=== PATIENT | female | born 1960 | race Two or more races ===

== ENCOUNTER 2024-02-25 18:59 | Emergency (ER) | payer MEDICAID, OTHER ==
[~2024-02-25] VITALS: Ht 157.5 cm; Wt 93.0 kg
[2024-02-25 20:20] VITALS: BP 106/62; PULSE 111; RESP 16; TEMP 98.8; O2SAT 97
--- NOTE | 2024-02-25 21:09 | DVH ---
CT LS SPINE WO CONTRAST Date: 02/25/2024 08:40 PM History: lumbar radiculopaty Comparison: None TECHNIQUE: Multiple axial CT images of the lumbosacral spine were obtained using bone algorithm. Axial and coron al reformatting was done. Bone and soft tissue windows were reviewed. Radiation Dose Information: CT Dose: CTDI volume is 35.24 mGy. Dose-length product is 1185.73 mGy*cm FINDINGS: 4 mm calculus right kidney with no hydronephrosis No CT evidence of definite acute fracture, spinal dislocation, or significant appearing acute subluxa tion is seen. The visualized paraspinal soft tissues are grossly unremarkable. T12-L1 There is no evidence of central spinal canal or neuroforaminal stenosis. L1-L2 There is no evidence of central spinal canal or neuroforaminal stenosis. L2-L3 There is no evidence of central spinal canal or neuroforaminal stenosis. L3-L4 There is no evidence of central spinal canal or neuroforaminal stenosis. Mild diffuse annular b ulging of the disc L4-L5 hypertrophic arthritic changes of the posterior facets and hypertrophy of the ligamentum flavum which are partially calcified. There is mild spinal stenosis. L5-S1 diffuse annular bulge of the disc involving the right worse than left neural foramen. There is mild spinal stenosis. IMPRESSION: 1. Diffuse annular bulge of the disc at L5-S1 with involvement of the both right worse than the left neural foramen. There is also with mild spinal stenosis. 2. Diffuse annular bulge of the disc involving neural foramen bilaterally with mild spinal stenosis. There is also hypertrophic arthritic changes of the posterior facets and partially calcified hypertro phy of the ligamentum flavum bilaterally. 3. Nonobstructing calculus right kidney. All CT scans at this medical facility are performed using dose modulation techniques as appropriate t o a performed exam including the following: Automated exposure control was utilized; adjustment of th e MA and/or KV according to patient size; and use of iterative reconstruction technique.
--- NOTE | 2024-02-25 21:24 | ED.PDOC ---
Back pain HPI HPI Comments This is a 63-year-old female presents to the ED acute on chronic low back pain. 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 He states since, has been having bilateral low back pain radiating down posterior legs to the heel. Does note chronic back pain and follows with pain management however she states the shooting down to her heel is new. States she was seen at [facility] after the accident had an x-ray done which showed no acute findings. Patient also states that she has history of urgency, frequency and incontinence due to an epidural she received which she states is chronic in nature. Does state since the fall the symptoms have progressed she states more urgency. Complaining of bilateral low back pain 10/10 on pain scale describes as sharp shooting pain down both posterior legs. Denies any weakness foot drop saddle anesthesia fever or chills. Notes no loss of control of her bladder or bowels Chief Complaint: Back Pain Time Seen by MD: 19:18 Reviewed Notes: Nurses Notes, Medications, Allergies Allergies: Coded Allergies: Erythromycin (Verified Allergy, Unknown, 02/25/24) Tetracycline (Verified Allergy, Unknown, 02/25/24) Information Source: Patient Mode of Arrival: Wheelchair Past Medical History PAST MEDICAL HISTORY: Denies Past Medical History (Other): Chronic low back pain Surgical History: Denies all surgeries VINYL INSTALLER History: No Pertinent VINYL INSTALLER History Family History Family History: Reviewed,noncontributory to illness Social History Smoker: Non-Smoker Alcohol: Denies ETOH Use Drugs: Denies Drug Use Constitutional: denies: chills, diaphoresis, fatigue, fever, malaise, sweats, weakness, others EENTM: denies: blurred vision, double vision, ear bleeding, ear discharge, ear drainage, ear pain, ear ringing, eye pain, eye redness, hearing loss, mouth pain, mouth swelling, nasal discharge, nose bleeding, nose congestion, nose pain, photophobia, tearing, throat pain, throat swelling, voice changes, others Respiratory: denies: cough, hemoptysis, orthopnea, SOB at rest, shortness of breath, SOB with excertion, stridor, wheezing, others Cardiovascular: denies: chest pain, dizzy spells, diaphoresis, Dyspnea on exertion, edema, irregular heart beat, left arm pain, lightheadedness, palpitations, PND, syncope, others Gastrointestinal: denies: abdomen distended, abdominal pain, blood streaked bowels, constipated, diarrhea, dysphagia, difficulty swallowing, hematemesis, melena, nausea, poor appetite, poor fluid intake, rectal bleeding, rectal pain, vomiting, others Genitourinary: denies: abnormal vagina bleeding, burning, dyspareunia, dysuria, flank pain, frequency, hematuria, incontinence, pain, , vagina discharge, urgency, others Neurological: denies: dizziness, fainting, headache, left sided numbness, left sided weakness, numbness, paresthesia, pre-existing deficit, right sided numbness, right sided weakness, seizure, speech problems, tingling, tremors, weakness, others Musculoskeletal: reports: back pain; denies: gout, joint pain, joint swelling, muscle pain, muscle stiffness, neck pain, others Integumetry: denies: bruises, change in color, change in hair/nails, dryness, laceration, lesions, lumps, rash, wounds, others Allergic/Immunocompromised: denies: Difficulty Healing, Frequent Infections, Hives, Itching, others Hematologic/Lymphatic: denies: anemia, blood clots, easy bleeding, easy bruising, swollen glands, others Endocrine: denies: excessive hunger, excessive sweating, excessive thirst, excessive urination, flushing, intolerance to cold, intolerance to heat, unexplained weight gain, unexplained weight loss, others Psychiatric: denies: anxiety, bipolar disorder, depression, hopeless, panic disorder, schizophrenia, sleepless, suicidal, others Physical Exam General Appearance: No Apparent Distress, Normal HEENT: Normal ENT Inspection, Pharynx Normal, TMs Normal Neck: Full Range of Motion, Non-Tender, Normal, Normal Inspection Respiratory: Chest Non-Tender, Lungs Clear, No Accessory Muscle Use, No Respiratory Distress, Normal Breath Sounds Cardiovascular: No Edema, No JVD, No Murmur, No Gallop, Normal Peripheral Pulses, Regular Rate/Rhythm Breast Exam: Deferred Gastrointestinal: No Organomegaly, Non Tender, No Pulsatile Mass, Normal Bowel Sounds, Soft Genitalia: Deferred Pelvic: Deferred Rectal: Deferred Extremities: Normal capillary refill, Normal inspection, Normal range of motion, Non-tender, No pedal edema Musculoskeletal : Location: Bilateral Extremity Location: Back (L1 through L5 lumbar spine without crepitus or step-offs. Tenderness palpated over paraspinal muscles bilaterally. Negative straight leg raise bilateral. Sensory strength and motion fully intact distal legs positive pedal pulses.) Apperance: Normal Neurologic: Alert, machine operator II-XII nml as Tested, No Motor Deficits, Normal Affect, Normal Mood, No Sensory Deficits Cerebellar Function: Normal Reflexes: Normal Skin: Dry, Normal Color, Warm Lymphatic: No Adenopathy Was a procedure done? Was a procedure done?: No Back Pain Differential Dx Differential Diagnosis: Fracture, Musculoskeletal Pain X-Ray, Labs, Meds, VS Vital Signs Date Time Temp Pulse Resp B/P (MAP) Pulse Ox O2 Delivery O2 Flow Rate FiO2 02/25/24 20:20 111 16 97 Room Air* 0 21 02/25/24 20:20 98.8 111 18 106/62 (77) 98 98.8 02/25/24 19:51 98.0 121 20 106/62 (77) 97 Current Medications Medications (Trade) Dose Ordered Sig/Osmar Route Start Time Stop Time Status Last Admin Dexamethasone Sodium Phosphate (Decadron Injection) 10 mg ONCE ONCE IM 02/25/24 21:30 02/25/24 21:31 DC 02/25/24 21:39 Ketorolac Tromethamine (Toradol Injection) 30 mg ONCE ONCE IM 02/25/24 21:30 02/25/24 21:31 DC 02/25/24 21:39 X-Ray, Labs, Meds, VS Comment CT of lumbar spine shows no acute findings. Does show chronic L4-L5 L5-S1 moderate disc bulging with [id number] bilateral neural foraminal stenosis. Findings with patient patient states has not appointment with her pain management doctor in April. Patient states she feels better after getting Toradol 30 mg IM and Decadron 10 mg IM in his requesting discharge at this time. Precautions to the ER given advised patient she has any loss of her full control bowels or urine to return to the ER or any saddle anesthesia. Patient agrees with discharge care plan. Time of 1ST Reevaluation: 21:30 Reevaluation 1ST: Improved Patient Education/Counseling: Diagnosis, Treatment, Prognosis, Need For Follow Up Family Education/Counseling: No Family Present Departure 1 Departure Time of Disposition: 21:35 Impression: Primary Impression: Lumbar radiculopathy Additional Impression: Spinal stenosis of lumbar region Qualified Codes: M48.061 - Spinal stenosis, lumbar region without neurogenic claudication Disposition: 01 HOME / SELF CARE / HOMELESS Condition: Stable Discharged With: Self Critical Care Note Critical Care Time?: No Stability Stability form required: REBECCA Jackson Feb 25, 2024 21:24
[2024-02-25] MEDS: KETOROLAC TROMETH 60MG/2ML VIAL IM ONE (21:39)
[2024-02-25] MEDS: DexAMETHasone SOD PHOS 10MG/1ML VIAL INJ IM ONE (21:39)
== END 2024-02-25 21:58 | disposition home or self-care (01) ==
LOC: ER 18:59
DX: M48.061 Spinal stenosis, lumbar region without neurogenic claudication (principal); M54.16 Radiculopathy, lumbar region; Z88.1 Allergy status to other antibiotic agents
CPT/HCPCS: 72131; 96372; 99285; J1100; J1885

== ENCOUNTER 2024-03-08 20:20 | Emergency (ER) | payer MEDICAID ==
[~2024-03-08] VITALS: Ht 157.5 cm; Wt 90.9 kg
--- NOTE | 2024-03-08 23:12 | ED.PDOC ---
History of Present Illness HPI Comments 63 y/o F, with a Hx of nephrolithiasis, obesity, urosepsis, and UTI's, presents for abnormal labs, today. Patient endorses on being sent by her PCP for further workup to rule out sepsis following telehealth visit, earlier, today, after being diagnosed with a UTI and showing elevated WBC from recent lab-work. She comments on said telehealth visit being a f/u for chronic neck and back pain she is being cared for and reports no further additional relevant or pertinent Hx. She denies having any urinary symptoms, fever, chills, weakness, or other associated symptoms or modifiers at this time. Chief Complaint: Abnormal LAB's Time Seen by MD: 23:00 Reviewed Notes: Nurses Notes, Medications, Allergies Allergies: Coded Allergies: Erythromycin (Verified Allergy, Unknown, 02/25/24) Tetracycline (Verified Allergy, Unknown, 02/25/24) Information Source: Patient Mode of Arrival: Ambulatory Severity: Moderate Timing: Hours Duration: Since onset Prehospital treatment: None Past Medical History PAST MEDICAL HISTORY: Kidney Stones, UTI'S Past Medical History (Other): obesity, urosepsis Surgical History: Denies all surgeries RESERVATIONS AGENT History: No Pertinent RESERVATIONS AGENT History Family History Family History: Reviewed,noncontributory to illness Social History Smoker: Non-Smoker Alcohol: Denies ETOH Use Drugs: Denies Drug Use Lives In: Home Genitourinary: reports: others (abnormal labs ) Hematologic/Lymphatic: reports: others (abnormal labs ) All Other Systems: Reviewed and Negative (negative unless otherwise stated above or in HPI) Physical Exam General Appearance: No Apparent Distress, Obese HEENT: Normal ENT Inspection, Pharynx Normal, TMs Normal Neck: Full Range of Motion, Non-Tender, Normal, Normal Inspection Respiratory: Chest Non-Tender, Lungs Clear, No Accessory Muscle Use, No Respiratory Distress, Normal Breath Sounds Cardiovascular: No Edema, No JVD, No Murmur, No Gallop, Normal Peripheral Pulses, Regular Rate/Rhythm Breast Exam: Deferred Gastrointestinal: No Organomegaly, Non Tender, No Pulsatile Mass, Normal Bowel Sounds, Soft Genitalia: Deferred Pelvic: Deferred Rectal: Deferred Extremities: No calf tenderness, Normal capillary refill, Normal inspection, Normal range of motion, Non-tender, No pedal edema Musculoskeletal : Apperance: Normal Neurologic: Alert, web press roll tender II-XII nml as Tested, No Motor Deficits, Normal Affect, Normal Mood, No Sensory Deficits Cerebellar Function: Normal Reflexes: Normal Skin: Dry, Normal Color, Warm Lymphatic: No Adenopathy Was a procedure done? Was a procedure done?: No Differential Dx Considerations may include: sepsis, UTI, viral syndrome X-Ray, Labs, Meds, VS Vital Signs Date Time Temp Pulse Resp B/P (MAP) Pulse Ox O2 Delivery O2 Flow Rate FiO2 03/08/24 20:40 97.5 116 18 109/70 (83) 95 Lab Test 03/08/24 23:58 Range/Units White Blood Count 9.8 4.4-10.8 10^3/uL Red Blood Count 4.22 4.0-5.20 10^6/uL Hemoglobin 11.7 L 12.2-16.2 g/dL Hematocrit 36.3 36.0-46.0 % Mean Corpuscular Volume 86.0 80.0-100.0 fL Mean Corpuscular Hemoglobin 27.7 L 28.0-32.0 pg Mean Corpuscular Hemoglobin Concent 32.2 32.0-36.0 g/dL Red Cell Distribution Width 15.4 H 11.8-14.3 % Platelet Count 284 140-450 10^3/uL Mean Platelet Volume 8.4 6.9-10.8 fL Neutrophils (%) (Auto) 69.1 37.0-80.0 % Lymphocytes (%) (Auto) 23.4 10.0-50.0 % Monocytes (%) (Auto) 5.3 0.0-12.0 % Eosinophils (%) (Auto) 1.6 0.0-7.0 % Basophils (%) (Auto) 0.6 0.0-2.0 % Neutrophils # (Auto) 6.8 1.6-8.6 10 ^3/uL Lymphocytes # (Auto) 2.3 0.4-5.4 10 ^3/uL Monocytes # (Auto) 0.5 0-1.3 10 ^3/uL Eosinophils # (Auto) 0.2 0-0.8 10 ^3/uL Basophils # (Auto) 0.1 0-0.2 10 ^3/uL Nucleated Red Blood Cells 0.1 % Lactic Acid Level 1.4 0.4-2.0 mmol/L Lactic acid is 1.4. White blood cell count is 9.8. The patient will be discharged as there is no signs of sepsis. She is to follow up with the primary care physician which she states she has antibiotics prescribed at the pharmacy. Time of 1ST Reevaluation: 23:30 Reevaluation 1ST: Unchanged Patient Education/Counseling: Diagnosis, Treatment Family Education/Counseling: No Family Present Departure 1 Departure Time of Disposition: 00:58 Impression: Primary Impression: UTI (urinary tract infection) Qualified Codes: N39.0 - Urinary tract infection, site not specified Disposition: HOME / SELF CARE / HOMELESS Condition: Stable Additional Instructions: Reassessed patient, vital signs stable. Denies any new symptoms. Patient is able to tolerate PO and ambulate/be mobile at their baseline without concern. Risks and benefits of all medications given or prescribed, if any, discussed. All lab work, imaging and diagnostic studies were reviewed by me. The patient was counseled extensively on my clinical impression, diagnosis, expected course of the disease, and plan, including their follow-up care. Will discharge patient. Patient instructed to follow up with Primary Care Physician within 24-48 hours. Strict return precautions given for further exacerbation of symptoms or for new symptoms. The patient was given the opportunity to ask questions and all questions were answered by myself and the nursing/tech staff. Patient is in agreement with the care plan. The patient verbally expressed understanding of the discharge instructions, including the reasons to return to the Emergency Department. e-Prescriptions Levofloxacin Hemihydrate (LEVAQUIN 500 MG) 500 Mg Tab 500 MG PO DAILY for 7 Days, #7 TAB Prov: MIKE ARRIOLA MD 03/09/24 Discharged With: Self Critical Care Note Critical Care Time?: No Stability Stability form required: No Heart Score Heart Score: Heart Score Response (Comments) Value History N/A 0 EKG N/A 0 Age N/A 0 Risk Factors N/A 0 Troponin N/A 0 Total 0 I personally scribed for MIKE ARRIOLA MD ([email or web address]) on 03/08/24 at 23:12. Electronically submitted by Brett Neves ([email or web address]). MIKE ARRIOLA MD Mar 08, 2024 23:12
[2024-03-09 00:28] LABS: Basophils # (auto) 0.1 10 ^3/uL (0-0.2); Basophils % (auto) 0.6 % (0.0-2.0); Eosinophils # (auto) 0.2 10 ^3/uL (0-0.8); Eosinophils % (auto) 1.6 % (0.0-7.0); Hematocrit 36.3 % (36.0-46.0); Hemoglobin 11.7 g/dL (12.2-16.2); Lymphocytes # (auto) 2.3 10 ^3/uL (0.4-5.4); Lymphocytes % (auto) 23.4 % (10.0-50.0); Mean Corpuscular Hemoglobin 27.7 pg (28.0-32.0); Mean Corpuscular Hgb Conc. 32.2 g/dL (32.0-36.0); Monocytes # (auto) 0.5 10 ^3/uL (0-1.3); Monocytes % (auto) 5.3 % (0.0-12.0); Neutrophils # (auto) 6.8 10 ^3/uL (1.6-8.6); Neutrophils % (auto) 69.1 % (37.0-80.0); Nucleated Red Blood Cells % 0.1 %; Platelet Count (auto) 284 10^3/uL (140-450); Red Blood Cells 4.22 10^6/uL (4.0-5.20); Red Cell Distribution Width 15.4 % (11.8-14.3); White Blood Cell 9.8 10^3/uL (4.4-10.8)
[2024-03-09] MEDS ORDERED: LEVO500T91 PO (01:00)
[2024-03-09 02:42] VITALS: BP 116/65; PULSE 92; RESP 18; TEMP 97.8; O2SAT 96
[2024-03-09] MEDS: DexAMETHasone SOD PHOS 10MG/1ML VIAL INJ IM ONE (02:49)
[2024-03-09] MEDS: KETOROLAC TROMETH 60MG/2ML VIAL IM ONE (02:49)
[2024-03-09] MEDS: HYDROcodone-ACET 5/325MG TAB PO ONE (02:50)
== END 2024-03-09 03:02 | disposition home or self-care (01) ==
LOC: ER 20:20
DX: N39.0 Urinary tract infection, site not specified (principal); Z88.1 Allergy status to other antibiotic agents; Z88.6 Allergy status to analgesic agent; Z87.442 Personal history of urinary calculi
CPT/HCPCS: 36415; 83605; 85025; 96372; 99284; J1100; J1885

== ENCOUNTER 2024-04-02 15:58 | Emergency (ER) | payer MEDICAID ==
[~2024-04-02] VITALS: Ht 165.1 cm; Wt 82.0 kg
[~2024-04-02 15:58] MED LIST: LEVO500T91 PO
--- NOTE | 2024-04-02 16:11 | ED.PDOC ---
History of Present Illness HPI Comments 63 year old female brought in by EMS presents to ED with a chief complaint of rash onset today. Patient states home health nurse was concerned due to low O2 sat and rash on abdominal region. Upon EMS arrival patient's O2 sat was 97% on RA, rash is resolved upon ED arrival. Patient has no further complaints. Denies chest pain, shortness of breath, abdominal pain, nausea, vomiting, diarrhea, blurry vision, dizziness. No other symptoms or modifying factors present at this time. Time Seen by MD: 16:08 Reviewed Notes: Nurses Notes, Hole Puncher Strap Notes, Medications, Allergies Allergies: Coded Allergies: Erythromycin (Verified Allergy, Unknown, 02/25/24) Tetracycline (Verified Allergy, Unknown, 02/25/24) Home Meds Active Scripts Levofloxacin Hemihydrate (LEVAQUIN 500 MG) 500 Mg Tab, 500 MG PO DAILY for 7 Days, #7 TAB Prov:MIKE ARRIOLA MD 03/09/24 Information Source: Patient, Emergency Med Personnel Mode of Arrival: EMS Severity: Moderate Timing: Hours Duration: Since onset Prehospital treatment: None Past Medical History PAST MEDICAL HISTORY: Anxiety, DM, HTN, Kidney Stones, UTI'S Surgical History: Denies all surgeries MEAT MARKET MANAGER History: No Pertinent MEAT MARKET MANAGER History Family History Family History: Reviewed,noncontributory to illness Social History Smoker: Non-Smoker Alcohol: Denies ETOH Use Drugs: Denies Drug Use Lives In: Home Constitutional: denies: chills, diaphoresis, fatigue, fever, malaise, sweats, weakness, others EENTM: denies: blurred vision, double vision, ear bleeding, ear discharge, ear drainage, ear pain, ear ringing, eye pain, eye redness, hearing loss, mouth pain, mouth swelling, nasal discharge, nose bleeding, nose congestion, nose pain, photophobia, tearing, throat pain, throat swelling, voice changes, others Respiratory: denies: cough, hemoptysis, orthopnea, SOB at rest, shortness of breath, SOB with excertion, stridor, wheezing, others Cardiovascular: denies: chest pain, dizzy spells, diaphoresis, Dyspnea on exertion, edema, irregular heart beat, left arm pain, lightheadedness, palpitations, PND, syncope, others Gastrointestinal: denies: abdomen distended, abdominal pain, blood streaked bowels, constipated, diarrhea, dysphagia, difficulty swallowing, hematemesis, melena, nausea, poor appetite, poor fluid intake, rectal bleeding, rectal pain, vomiting, others Genitourinary: denies: abnormal vagina bleeding, burning, dyspareunia, dysuria, flank pain, frequency, hematuria, incontinence, pain, , vagina discharge, urgency, others Neurological: denies: dizziness, fainting, headache, left sided numbness, left sided weakness, numbness, paresthesia, pre-existing deficit, right sided numbness, right sided weakness, seizure, speech problems, tingling, tremors, weakness, others Musculoskeletal: denies: back pain, gout, joint pain, joint swelling, muscle pain, muscle stiffness, neck pain, others Integumetry: reports: rash; denies: bruises, change in color, change in hair/nails, dryness, laceration, lesions, lumps, wounds, others Allergic/Immunocompromised: denies: Difficulty Healing, Frequent Infections, Hives, Itching, others Hematologic/Lymphatic: denies: anemia, blood clots, easy bleeding, easy bruising, swollen glands, others Endocrine: denies: excessive hunger, excessive sweating, excessive thirst, excessive urination, flushing, intolerance to cold, intolerance to heat, unexplained weight gain, unexplained weight loss, others Psychiatric: denies: anxiety, bipolar disorder, depression, hopeless, panic disorder, schizophrenia, sleepless, suicidal, others All Other Systems: Reviewed and Negative Physical Exam General Appearance: Moderate Distress ([id number] distress due to itchy nose concerns), Normal HEENT: Normal ENT Inspection, Pharynx Normal, TMs Normal Neck: Full Range of Motion, Non-Tender, Normal, Normal Inspection Respiratory: Chest Non-Tender, Lungs Clear, No Accessory Muscle Use, No Respiratory Distress, Normal Breath Sounds Cardiovascular: No Edema, No JVD, No Murmur, No Gallop, Normal Peripheral Pulses, Regular Rate/Rhythm Breast Exam: Deferred Gastrointestinal: No Organomegaly, Non Tender, No Pulsatile Mass, Normal Bowel Sounds, Soft Genitalia: Deferred Pelvic: Deferred Rectal: Deferred Extremities: No calf tenderness, Normal inspection Musculoskeletal : Apperance: Normal Neurologic: Alert, No Motor Deficits, Normal Affect, Normal Mood, No Sensory Deficits Cerebellar Function: Normal Reflexes: Normal Skin: Dry, Normal Color, Rash (Patient complained of rash shoe belly shows, but unable to appreciate any signs of papular formation or sandpaper rash like appearance. No signs of infection.), Warm Lymphatic: No Adenopathy Was a procedure done? Was a procedure done?: No Differential Dx Considerations may include: Allergic reaction, rash X-Ray, Labs, Meds, VS Vital Signs Date Time Temp Pulse Resp B/P (MAP) Pulse Ox O2 Delivery O2 Flow Rate FiO2 04/02/24 18:00 95 12 95 Room Air* 0 21 04/02/24 18:00 99.5 95 17 109/71 (84) 95 99.5 04/02/24 18:00 95 17 95 Room Air 04/02/24 16:48 97.9 91 16 131/71 (91) 96 Lab Test 04/02/24 15:47 Range/Units Urine Color Yellow Yellow Urine Clarity Turbid H Clear Urine pH 5.5 5.0-9.0 Urine Specific [place] 1.027 1.001-1.035 Urine Protein Negative Negative Urine Ketones Negative Negative Urine Blood Negative Negative /uL Urine Nitrite Negative Negative Urine Bilirubin Negative Negative Urine Urobilinogen Normal Negative mg/dL Urine Leukocyte Esterase Negative Negative /uL Urine RBC 2 0 - 4 /hpf Urine Microscopic WBC 2 0-5 /HPF Urine Squamous Epithelial Cells Few <5 /hpf Urine Bacteria Few H None Seen /hpf Urine Hyaline Casts Few 0 - 2 /lpf Urine Mucus Few None Seen Urine Glucose Normal Normal mg/dL Current Medications Medications (Trade) Dose Ordered Sig/Osmar Route Start Time Stop Time Status Last Admin Hydroxyzine Pamoate (Vistaril Oral) 25 mg ONCE ONCE PO 04/02/24 16:15 04/02/24 16:26 DC 04/02/24 17:44 Dexamethasone Sodium Phosphate (Decadron Injection) 10 mg ONCE ONCE IM 04/02/24 17:45 04/02/24 17:46 DC 04/02/24 17:46 Ketorolac Tromethamine (Toradol Injection) 30 mg ONCE ONCE IM 04/02/24 18:30 04/02/24 18:31 DC 04/02/24 18:33 X-Ray, Labs, Meds, VS Comment Patient had good relief of symptoms status post medication dispensed. A review urinalysis that was unremarkable for any systemic process. Advised patient utilize medication as needed and follow up with primary care provider for continued evaluation. Time of 1ST Reevaluation: 20:38 Reevaluation 1ST: Improved Consultation: PCP Patient Education/Counseling: Diagnosis, Treatment, Prognosis Family Education/Counseling: Diagnosis, Treatment, No Family Present Departure 1 Departure Time of Disposition: 20:38 Impression: Primary Impression: Rash Disposition: 01 HOME / SELF CARE / HOMELESS Condition: Stable Additional Instructions: Advised patient utilize medication as needed and follow up with primary care provider for continued evaluation and management of multiple comorbidities. e-Prescriptions Hydroxyzine Hcl (Hydroxyzine Hcl) 25 Mg Tab 1 TAB PO TID, #20 TAB Prov: ROXANE SUH PAC 04/02/24 Discharged With: Self, Friend Critical Care Note Critical Care Time?: No Stability Stability form required: No Heart Score Heart Score: Heart Score Response (Comments) Value History N/A 0 EKG N/A 0 Age N/A 0 Risk Factors N/A 0 Troponin N/A 0 Total 0 I personally scribed for ROXANE SUH PAC ([email or web address]) on 04/02/24 at 16:11. Electronically submitted by Noelle León ([email or web address]). I personally scribed for ROXANE SUH PAC ([email or web address]) on 04/02/24 at 16:44. Electronically submitted by Noelle León ([email or web address]). ROXANE SUH PAC Apr 02, 2024 16:11
[2024-04-02] MEDS: DexAMETHasone SOD PHOS 10MG/1ML VIAL INJ IM ONE (17:39)
[2024-04-02] MEDS: hydrOXYzine 25 MG TAB or CAP PO ONE (17:44)
[2024-04-02] MEDS: DexAMETHasone SOD PHOS 4 MG/1ML SDV INJ IM ONE (17:46)
[2024-04-02 18:00] VITALS: BP 109/71; PULSE 95; RESP 12; TEMP 99.5; O2SAT 95
[2024-04-02] MEDS: KETOROLAC TROMETH 30 MG/ML 1ML VIAL IM ONE (18:33)
[2024-04-02 20:13] LABS: Urine Bacteria FEW /hpf (None Seen); Urine Blood Negative /uL (Negative); Urine Clarity Turbid (Clear); Urine Color Yellow (Yellow); Urine Hyaline Cast FEW /lpf (0 - 2); Urine Mucus FEW (None Seen); Urine Protein, UAD Negative (Negative); Urine Specific Gravity 1.027 (1.001-1.035); Urine Squamous Epithelial Cell FEW /hpf (<5); Urine Urobilinogen Normal (Negative); Urine WBC 2 /HPF (0-5); Urine pH 5.5 (5.0-9.0)
[2024-04-02] MEDS ORDERED: HYDR-3682 PO (20:39)
== END 2024-04-02 21:48 | disposition home or self-care (01) ==
LOC: EDBD 15:58 → ER 16:03
DX: R21 Rash and other nonspecific skin eruption (principal); I10 Essential (primary) hypertension; E11.9 Type 2 diabetes mellitus without complications; F41.9 Anxiety disorder, unspecified; Z88.1 Allergy status to other antibiotic agents; Z79.899 Other long term (current) drug therapy
CPT/HCPCS: 81001; 96372; 99284; J1885; J1100